=== PATIENT | male | born 1950 | race Caucasian/White ===

== ENCOUNTER 2018-05-05 04:10 | Emergency (ER) | payer OTHER ==
[~2018-05-05] VITALS: Ht 185.4 cm; Wt 120.2 kg
[2018-05-05 04:18] VITALS: Ht 185.4 cm; Wt 120.2 kg
[2018-05-05 07:35] VITALS: BP 139/84
== END 2018-05-05 07:36 ==
LOC: ED 04:10
DX: T50.905A Adverse effect of unspecified drugs, medicaments and biological substances, initial encounter (principal); K21.9 Gastro-esophageal reflux disease without esophagitis; H81.10 Benign paroxysmal vertigo, unspecified ear; I10 Essential (primary) hypertension; E11.9 Type 2 diabetes mellitus without complications; F20.9 Schizophrenia, unspecified; Z88.8 Allergy status to other drugs, medicaments and biological substances; Z79.84 Long term (current) use of oral hypoglycemic drugs; Z79.899 Other long term (current) drug therapy; Y92.89 Other specified places as the place of occurrence of the external cause
CPT/HCPCS: J8597